=== PATIENT | male | born 1980 | race Caucasian/White ===

== ENCOUNTER 2024-06-25 13:36 | Emergency (ER) | payer SELFPAY ==
[2024-06-25] MEDS ORDERED: levETIRAcetam 500 MG TAB ONE (14:05)
== END 2024-06-25 14:45 | disposition home or self-care (01) ==
LOC: NAV ERS 13:36
DX: G40.909 Epilepsy, unspecified, not intractable, without status epilepticus (principal); F90.9 Attention-deficit hyperactivity disorder, unspecified type; F17.210 Nicotine dependence, cigarettes, uncomplicated; Z79.899 Other long term (current) drug therapy
CPT/HCPCS: 99284